=== PATIENT | female | born 2000 | race Caucasian/White ===

== ENCOUNTER 2023-12-20 10:05 | Emergency (ER) | payer BC, SELFPAY ==
--- NOTE | ~2023-12-20 | XR_ITS ---
EXAMINATION: XR_CERV2-3V_CR DATE: 12/20/2023 10:43 INDICATION: Neck pain. Numbness and tingling. TECHNIQUE: 3 views of cervical spine were obtained. COMPARISON: None. FINDINGS: There is mild kyphosis of cervical spine. Vertebral body heights and intervertebral disc he ights are normal. The facet joints are normal. No central canal stenosis or prevertebral soft tissue swelling. IMPRESSION: 1. No etiology for the patient's symptoms. Reviewed, dictated and finalized at location A.
--- NOTE | 2023-12-20 10:11 | ED_ITS ---
HPI - General Adult General Chief complaint: Neck Pain/Injury Stated complaint: Neck Pain Time Seen by Provider: 12/20/23 10:11 Source: patient Mode of arrival: ambulatory Limitations: no limitations History of Present Illness HPI narrative: 23-year-old female patient presents to [facility] with complaints of right sided neck pain. Patient states that she woke up this morning with what she thought was maybe a stiff neck and went to go and crack her neck and states the mood really started feeling worsening pain with some numbness and tingling going down the back. Patient states she did do some Pilates this but states felt fine before going to bed last night. Patient denies taking any medication for pain prior to arrival today. Patient denies any numbness and tingling going down the arms or legs. Patient not having any issues with ambulation Related Data Allergies Allergy/AdvReac Type Severity Reaction Status Date / Time amoxicillin Allergy Hives Verified 12/20/23 10:35 azithromycin Allergy Hives Verified 12/20/23 10:35 sulfamethoxazole Allergy Hives Verified 12/20/23 10:35 [From Sulfamethoxazole-Trimethoprim] trimethoprim Allergy Hives Verified 12/20/23 10:35 [From Sulfamethoxazole-Trimethoprim] Review of Systems Review of Systems: CONSTITUTIONAL: Denies fever, chills, or sweats. EYES: Denies visual changes, redness, or discharge. ENT: Denies rhinorrhea, congestion, sore throat, or otalgia. CARDIOVASCULAR: Denies chest pain, palpitations, or edema. RESPIRATORY: Denies cough or dyspnea. GASTROINTESTINAL: Denies abdominal pain, nausea, vomiting, or diarrhea. GENITOURINARY: Denies dysuria or hematuria. SKIN: Denies rash or itching. MUSCULOSKELETAL: Denies back pain, joint pain, or myalgia. positive neck pain NEUROLOGIC: Denies headache, numbness, or weakness. PSYCHIATRIC: Denies anxiety or depression. PMFSH Comments At the time of my signature I agree with nursing past medical history, surgical, social, and family history. There is no relevant family history pertinent to the presenting complaint. Exam Narrative: GENERAL: Well-appearing, well-nourished, and in no acute distress. HEAD: Normocephalic, atraumatic. EYES: PERRLA and EOMI. ENT: Nares clear, no rhinorrhea or epistaxis. Mucous membranes moist. NECK: Supple, no lymphadenopathy. No surface trauma, no soft tissue or muscle tenderness or spasm noted. muscle tenderness noted to the right-sided track these muscle on the lateral side of the neck as well.Trachea midline. No subq emphysema or crepitus. No orquidea tenderness, step-offs or deformity to firm Palpation at posterior midline. patient does have some tenderness noted to C4-C5 but states it could just be because her neck and moving in the movement is causing pain FROM with limitation And pain, limited flexion, extension,Lateral bending, rotation, and axial load. CHEST: Clear to auscultation. No respiratory distress. HEART: Regular rate and rhythm. No murmur heard. Normal peripheral pulses. ABDOMEN: Soft, nontender, nondistended, normal active bowel sounds. EXTREMITIES: Normal range of motion. No edema. SKIN: Warm, dry, no rash. NEURO: No focal deficits. Alert and oriented x3. Course Course Level of Care: Express Care Visit Reevaluation(s) Reevaluation #1: re-evaluated patient after x-ray resulted and notified her that the x-ray is negative for any concerning findings. Discussed with her that we will discharge home with muscle relaxers and naproxen for the pain continue doing a gentle massage, gentle stretching, heat and ice the area. Discussed with her to follow-up with primary care for possible PT referral. Patient verbalized understanding denies any other questions or concerns at this time. Date: 12/20/23 Time: 10:57 Vital Signs Vital signs: Vital Signs Temperature 37.0 C 12/20/23 10:15 Pulse Rate 79 12/20/23 10:15 Respiratory Rate 16 12/20/23 10:15 Blood Pressure 115/82 12/20/23 10:15 Pulse Oximetry 100 12/20/23 10:15 Temperature 37.0 C 12/20/23 10:15 Pulse Rate 79 12/20/23 10:15 Respiratory Rate 16 12/20/23 10:15 Blood Pressure 115/82 12/20/23 10:15 Pulse Oximetry 100 12/20/23 10:15 vital signs reviewed. Medical Decision Making MDM Narrative Medical decision making narrative: plan care patient is x-ray of the neck to make sure that there is no other significant injury that could be causing the pain. Patient will be given a shot of Toradol to help with the pain if the x-ray is negative most likely will discharge home with some muscle relaxers and naproxen and have her follow-up with her primary provider for PT referral. Differential Diagnosis Differential Diagnosis: Differential diagnosis: Cervical spine injury, muscle strain, spasm, torticollis, ligament injury, fracture, subluxation. Vital Signs Vital Signs: Vital Signs Temperature 37.0 C 12/20/23 10:15 Pulse Rate 79 12/20/23 10:15 Respiratory Rate 16 12/20/23 10:15 Blood Pressure 115/82 12/20/23 10:15 Pulse Oximetry 100 12/20/23 10:15 Temperature 37.0 C 12/20/23 10:15 Pulse Rate 79 12/20/23 10:15 Respiratory Rate 16 12/20/23 10:15 Blood Pressure 115/82 12/20/23 10:15 Pulse Oximetry 100 12/20/23 10:15 Imaging Data Radiologist's impression: [address] [place] [address] XRay Report Signed Patient: Iliana Moran : 2000 MR#: [id number] Age: 23 Acct:[id number] Loc: [facility] ADM Date: 12/20/23Attending Dr: Ordering Physician: Alia Orozco APRN Date of Service: 12/20/23 Procedure(s): XR cervical spine 2-3V Accession Number(s): [id number] cc: BOOT LINER MAKER PHYSICIAN; Alia Orozco APRN~ EXAMINATION: XR_CERV2-3V_CR DATE: 12/20/2023 10:43 INDICATION: Neck pain. Numbness and tingling. TECHNIQUE: 3 views of cervical spine were obtained. COMPARISON: None. FINDINGS: There is mild kyphosis of cervical spine. Vertebral body heights and intervertebral disc heights are normal. The facet joints are normal. No central canal stenosis or prevertebral soft tissue swelling. IMPRESSION: 1. No etiology for the patient's symptoms. Reviewed, dictated and finalized at location A. Dictated By: Bhavik Campos MD 12/20/23 1044 Signed By: <Electronically signed by Bhavik Campos MD in OV> Critical Care Time Critical Care Time Critical Care Time: No Discharge Plan Discharge Clinical Impression: Strain of neck muscle Qualifiers: Encounter type: initial encounter Qualified Code(s): S16.1XXA - Strain of muscle, fascia and tendon at neck level, initial encounter Patient Disposition: Home, Self-Care Condition: Stable Instructions: Antibiotic Form, Cervical Strain (ED) Additional Instructions: Ice and heat to the area for 20-30 minutes Gentle stretching exercises Gentle massage Caution with lifting, bending, stooping, twisting Avoid pushing, pulling take muscle relaxants as directed--caution drowsiness and no driving or alcohol Anti-inflammatory medicine as directed--take with food He may take the muscle relaxant and anti-inflammatory at the same time Follow-up with your PCP if not improving in 5-7 days Consult about physical therapy refer Prescriptions: New cyclobenzaprine 10 mg tablet 10 mg PO TID PRN (Reason: muscle spasm) 5 Days Qty: 15 0RF naproxen 500 mg tablet 500 mg PO BID 10 Days Qty: 20 0RF Follow-up/Referrals: Deep Dubois MD [Physician] - PHYSICIAN,BOOT LINER MAKER [Primary Care Provider] - Time of Disposition: 10:55
[2023-12-20 10:15] VITALS: BP 115/82; PULSE 79; RESP 16; TEMP 37; O2SAT 100
[2023-12-20] MEDS: KETOROLAC (*BKC) 60 MG/2 ML VIAL IM (10:50)
== END 2023-12-20 10:58 | disposition home or self-care (01) ==
PROVIDERS: Emergency Provider Nurse Practitioner Family
DX: S16.1XXA Strain of muscle, fascia and tendon at neck level, initial encounter (principal); X50.9XXA Other and unspecified overexertion or strenuous movements or postures, initial encounter
CPT/HCPCS: 72040; 96372; 99203; G0463; J1885

== ENCOUNTER 2024-03-22 10:44 | Emergency (ER) | payer BC, SELFPAY ==
[2024-03-22 11:16] VITALS: BP 125/80; PULSE 109; RESP 16; TEMP 37.5; O2SAT 100
--- NOTE | 2024-03-22 11:40 | ED.URI ---
HPI - URI/Sore Throat General Chief Complaint: Upper Respiratory Infection Stated Complaint: Strep Symptoms Time Seen by Provider: 03/22/24 11:53 Source: patient and RN notes reviewed Mode of arrival: ambulatory Limitations: no limitations History of Present Illness HPI Narrative: 23-year-old female presents with concern for sore throat, body aches, chills. She reports she gets strep once a year and this is how her strep symptoms feel. She reports low-grade temperature. Reports she has been taking ibuprofen. She reports mild nasal congestion and rhinorrhea. MD elicited complaint: sore throat Related Data Home Medications ?Medication ?Instructions ?Recorded ?Confirmed ?Last Taken ?Type norgestimate 0.25 mg-ethinyl tablet 03/22/24 Unknown History estradiol 35 mcg tablet (Estarylla) Allergies Allergy/AdvReac Type Severity Reaction Status Date / Time amoxicillin Allergy Hives Verified 03/22/24 11:38 azithromycin Allergy Hives Verified 03/22/24 11:38 sulfamethoxazole (From Allergy Hives Verified 03/22/24 11:38 Sulfamethoxazole-Trimethoprim) trimethoprim (From Allergy Hives Verified 03/22/24 11:38 Sulfamethoxazole-Trimethoprim) Review of Systems Review of Systems: CONSTITUTIONAL: Reports malaise, low-grade fever. EYES: Denies visual changes, redness, or discharge. ENT: Reports mild rhinorrhea, congestion. Rib sore throat. CARDIOVASCULAR: Denies chest pain, palpitations, or edema. RESPIRATORY: Denies cough. Denies dyspnea. GASTROINTESTINAL: Denies abdominal pain, nausea, vomiting, diarrhea SKIN: Denies rash or itching. MUSCULOSKELETAL: Reports myalgia. NEUROLOGIC: Reports headache. All systems reviewed & are unremarkable except as noted in HPI and below PMFSH Comments At time of signature, agree with nursing past medical, surgical, social and family history. There is no relevant family history pertinent to the presenting complaint Exam Narrative: GENERAL: Nontoxic-appearing, well-nourished, and in no acute distress. HEAD: Normocephalic EYES: PERRLA, conjunctivae clear ENT: Nares clear. Mucous membranes moist. TM pearly anne with sharp light reflex bilaterally; no tragal tenderness. Oropharynx mildly erythematous without lesions. Tonsils not enlarged and without exudate, no drooling, no hoarseness, no trismus, uvula midline. NECK: Supple. No lymphadenopathy CHEST: Clear to auscultation, breath sounds equal. No wheezing, rhonchi, rales, or stridor. No respiratory distress, speaks in full sentences. HEART: Regular rate and rhythm. No murmur heard. SKIN: Warm, dry, no rash. NEURO: Alert and oriented x3. PSYCH: Normal mood and affect Course Course Emergency Course: Patient is aware of diagnosis, understands and agrees to treatment plan. Anticipatory guidance given. Patient agrees to follow-up as directed and is aware of reasons to seek care at the emergency department. Portions of this record may have been created with voice recognition software Level of Care: Express Care Visit Vital Signs Vital signs: Vital Signs Temperature 99.5 F 03/22/24 11:16 Pulse Rate 109 H 03/22/24 11:16 Respiratory Rate 16 03/22/24 11:16 Blood Pressure 125/80 03/22/24 11:16 Pulse Oximetry 100 03/22/24 11:16 Temperature 99.5 F 03/22/24 11:16 Pulse Rate 109 H 03/22/24 11:16 Respiratory Rate 16 03/22/24 11:16 Blood Pressure 125/80 03/22/24 11:16 Pulse Oximetry 100 03/22/24 11:16 Reviewed. MDM - URI/Sore Throat MDM Narrative Medical decision making narrative: Differential diagnosis considered: Crum virus, strep pharyngitis, allergic rhinitis, upper respiratory tract infection, sinusitis, rhinosinusitis, nasopharyngitis. viral pharyngitis, otitis media, otitis externa, pneumonia, bronchitis, viral cough syndrome, viral syndrome, and influenza. Exam findings show no acute concerns or changes; patient is non-toxic appearing and is in no distress. Patient is appropriate for outpatient treatment and follow-up. Lab Data Attestation: I reviewed the patient's lab results. Critical Care Time Critical Care Time Critical Care Time: No Discharge Plan Discharge Patient Language: Albanian Prescriptions: No Action norgestimate-ethinyl estradiol [Estarylla] 0.25-35 mg-mcg tablet Follow-up/Referrals: PHYSICIAN,QUALITY ASSURANCE SUPERVISOR TRIM [Primary Care Provider] -
--- NOTE | 2024-03-22 12:15 | ED_ITS ---
HPI - URI/Sore Throat General Chief Complaint: Upper Respiratory Infection Stated Complaint: Strep Symptoms Time Seen by Provider: 03/22/24 11:53 Source: patient and RN notes reviewed Mode of arrival: ambulatory Limitations: no limitations History of Present Illness HPI Narrative: 23-year-old female presents with concern for sore throat, low-grade temperature, body aches, chills, nasal congestion, occasional cough. Reports 2-3 days of symptoms. Reports Related Data Home Medications ?Medication ?Instructions ?Recorded ?Confirmed ?Last Taken ?Type norgestimate 0.25 mg-ethinyl tablet 03/22/24 Unknown History estradiol 35 mcg tablet (Estarylla) Allergies Allergy/AdvReac Type Severity Reaction Status Date / Time amoxicillin Allergy Hives Verified 03/22/24 11:38 azithromycin Allergy Hives Verified 03/22/24 11:38 sulfamethoxazole (From Allergy Hives Verified 03/22/24 11:38 Sulfamethoxazole-Trimethoprim) trimethoprim (From Allergy Hives Verified 03/22/24 11:38 Sulfamethoxazole-Trimethoprim) Course Vital Signs Vital signs: Vital Signs Temperature 99.5 F 03/22/24 11:16 Pulse Rate 109 H 03/22/24 11:16 Respiratory Rate 16 03/22/24 11:16 Blood Pressure 125/80 03/22/24 11:16 Pulse Oximetry 100 03/22/24 11:16 Temperature 99.5 F 03/22/24 11:16 Pulse Rate 109 H 03/22/24 11:16 Respiratory Rate 16 03/22/24 11:16 Blood Pressure 125/80 03/22/24 11:16 Pulse Oximetry 100 03/22/24 11:16 Discharge Plan Discharge Clinical Impression: Upper respiratory infection Patient Disposition: Home, Self-Care Condition: Stable Instructions: Upper Respiratory Infection (ED) Additional Instructions: Your rapid COVID and flu tests are negative Your rapid strep swab was negative today at [facility]. A throat culture will be sent to the laboratory for further testing. If the test is positive, you will receive a phone call within 48 hours and an appropriate antibiotic will be initiated at that time. Your symptoms are likely due to a viral illness, which is not treated with antibiotics. Viral symptoms can be present for up to a few weeks. -Alternate Tylenol and Motrin per package directions for fever or pain. -Antihistamine medication such as Benadryl at night and Zyrtec during the day can help improve symptoms. -Eat and drink things that are easy to swallow, like tea or soup, or popsicles to suck on. -Oral rinses such as: Salt water gargles and/or may use topical anesthetic (eg. Chloraseptic spray) or lozenges to relieve dryness or throat pain). -Frequent hand washing or hand wood machinist is one of the best ways to prevent spread of infection. -Follow up with primary care provider in 2-3 days if condition is not improving; or seek ER visit if you have trouble breathing, cannot drink enough fluids, have muffled voice, difficulty opening your mouth, or severe swelling. Patient Language: French Prescriptions: No Action norgestimate-ethinyl estradiol [Estarylla] 0.25-35 mg-mcg tablet Follow-up/Referrals: PHYSICIAN,JINRIKISHA DRIVER [Primary Care Provider] - Stand Alone Forms: Work/School Release IP Time of Disposition: 12:16
[2024-03-22 12:27] LABS: EDCOVIDSCREEN Negative (Negative)
[2024-03-22 12:28] LABS: EDINFLUASCREEN Negative (Negative); EDINFLUBSCREEN Negative (Negative); EDSTREPNEGPOS1 Negative (Negative)
== END 2024-03-22 12:22 | disposition home or self-care (01) ==
PROVIDERS: Emergency Provider Nurse Practitioner
DX: J06.9 Acute upper respiratory infection, unspecified (principal); Z20.822 Contact with and (suspected) exposure to COVID-19
CPT/HCPCS: 87081; 87426; 87804; 87880; 99213; G0463